=== PATIENT | male | born 1960 | race Caucasian/White ===

== ENCOUNTER 2019-12-06 07:39 | Emergency (ER) | payer BC, OTHER ==
[2019-12-06] MEDS ORDERED: Ketorolac 60 MG/2 ML SDV IM ONE (08:01)
[2019-12-06] MEDS ORDERED: Cyclobenzaprine 10 MG Tab PO ONE (08:01)
--- NOTE | 2019-12-06 08:04 | EDM.PDOC ---
ED HPI GENERAL MEDICAL PROBLEM - General Chief Complaint: Back Pain or Injury Stated Complaint: INJURED BACK Time Seen by Provider: 12/06/19 07:58 Source of Information: Reports: Patient, RN Notes Reviewed History Limitations: Reports: No Limitations - History of Present Illness INITIAL COMMENTS - FREE TEXT/NARRATIVE: 59-year-old gentleman presents emergency department a complaint of low back pain , he was at work walking up the plow he states he did not lift he just bent over and then when he stood up heard a pop all of a sudden severe back pain predominantly right in the middle of his back no loss of bowel or bladder no numbness and tingling in the feet he has not taken anything for the pain Lower Back Pain Score (Numeric/FACES): 9 - Related Data Allergies Allergy/AdvReac Type Severity Reaction Status Date / Time No Known Allergies Allergy Verified 12/06/19 07:50 Home Meds: Home Meds Cyclobenzaprine [Flexeril] 10 mg PO TID PRN #15 tab 12/06/19 [Rx] Past Medical History HEENT History: Reports: Impaired Vision, Other (See Below) Other HEENT History: tinnitiis Respiratory History: Reports: Pneumonia, Recurrent Other Gastrointestinal History: fistulectomy Musculoskeletal History: Reports: Arthritis, Osteoarthritis Psychiatric History: Reports: Anxiety - Infectious Disease History Infectious Disease History: Reports: Chicken Pox, Shingles Social & Family History - Family History Family Medical History: Noncontributory - Tobacco Use Smoking Status *Q: Current Every Day Smoker Years of Tobacco use: 40 Packs/Tins Daily: 0.5 - Caffeine Use Caffeine Use: Reports: Coffee - Recreational Drug Use Recreational Drug Use: No ED ROS GENERAL - Review of Systems Review Of Systems: See Below Constitutional: Reports: No Symptoms Respiratory: Reports: No Symptoms Cardiovascular: Reports: No Symptoms GI/Abdominal: Reports: No Symptoms Musculoskeletal: Reports: Back Pain Neurological: Reports: No Symptoms ED EXAM,LOWER BACK PAIN/INJURY - Physical Exam Exam: See Below Exam Limited By: No Limitations General Appearance: Alert, Mild Distress Respiratory/Chest: No Respiratory Distress Back Exam: Normal Inspection, Decreased Range of Motion, Muscle Spasm, Paraspinal Tenderness. No: CVA Tenderness (R), CVA Tenderness (L), Vertebral Tenderness Neurological: No: Straight Leg Raise (L), Straight Leg Raise (R) Course - Vital Signs Last Recorded V/S: Last Vital Signs Temp 97.1 F 12/06/19 07:53 Pulse 89 12/06/19 08:58 Resp 16 12/06/19 08:58 BP 108/50 L 12/06/19 08:58 Pulse Ox 99 12/06/19 08:58 - Orders/Labs/Meds Meds: Medications Discontinued Medications Generic Name Dose Route Start Last Admin Trade Name Isi PRN Reason Stop Dose Admin Cyclobenzaprine HCl 10 mg 12/06/19 08:01 12/06/19 08:08 Flexeril PO 12/06/19 08:02 10 mg ONETIME ONE Administration Ketorolac Tromethamine 60 mg 12/06/19 08:01 12/06/19 08:07 Toradol IM 12/06/19 08:02 60 mg ONETIME ONE Administration Departure - Departure Time of Disposition: 10:00 Disposition: Home, Self-Care 01 Condition: Fair Clinical Impression: Low back pain Qualifiers: Chronicity: acute Back pain laterality: bilateral Sciatica presence: without sciatica Qualified Code(s): M54.5 - Low back pain - Discharge Information Instructions: Back Exercises, Back Injury Prevention, [id number], Muscle Strain, [id number] Referrals: PCP,None [Primary Care Provider] - Forms: ED Department Discharge, ED Return to Work/School Form Additional Instructions: Continue to use Tylenol or Motrin as needed for pain control, try the Flexeril for muscle relaxant please followup with your primary care provider in 3-5 days if not better, please call return to the emergency department with worsening of symptoms., Sepsis Event Note - Evaluation Sepsis Screening Result: No Definite Risk - Focused Exam Vital Signs: Vital Signs Temp Pulse Resp BP Pulse Ox 12/06/19 08:58 89 16 108/50 L 99 12/06/19 07:57 79 18 94/43 L 97 12/06/19 07:53 97.1 F 83 17 82/38 L 97 12/06/19 07:45 97.1 F 83 17 82/38 L 97 Date Exam was Performed: 12/06/19 Time Exam was Performed: 09:58 - Assessment/Plan Plan: Assessment Acuity = acute Site and laterality = low back pain Etiology = secondary to lifting injury Manifestations = none Location of injury = work Lab values = plain films do show a L2 compression fracture however undetermined age Plan He had good improvement combination Tylenol and Flexeril plan is discharged home with Flexeril 10 mg p.o. 3 times daily PRN total #15 this to be faxed to [facility] pharmacy have him follow-up with his primary care in 2 to 3 days if not better This note was dictated using [employer] voice recognition software please call with any questions on syntax or grammar.
[2019-12-06 08:59] VITALS: BP 108/50; PULSE 89
--- NOTE | 2019-12-06 09:32 | CR ---
Lumbar Spine 2 or 3V CLINICAL HISTORY: Back pain FINDINGS: There is a mild to moderate wedge compression deformity of L2. Chronology of this is uncertain acute fracture is not excluded. The there is moderate degenerative disc changes at L5-S1. There is a grade 1 retrolisthesis of L5 on S1 due to facet osteoarthropathy IMPRESSION: Mild/moderate wedge compression deformity of L2 may be acute or subacute Grade 1 L5 retrolisthesis due to osteoarthropathy in the facets Degenerative disc change L5-S1
== END 2019-12-06 10:11 | disposition home or self-care (01) ==
LOC: JP.ED 07:39
DX: M54.5 Low back pain (principal); F17.210 Nicotine dependence, cigarettes, uncomplicated; X50.1XXA Overexertion from prolonged static or awkward postures, initial encounter; Y93.89 Activity, other specified; Y92.89 Other specified places as the place of occurrence of the external cause; Y99.0 Civilian activity done for income or pay
CPT/HCPCS: 72100; 96372; 99283; A9270; J1885

== ENCOUNTER 2023-08-25 06:24 | Day surgery (SDC) | payer BC ==
[2023-08-25] MEDS ORDERED: Sodium Chloride 0.9% 1,000 ML IV SCH (06:30)
[2023-08-25] MEDS ORDERED: Lidocaine 1% 50 ML MDV ONE (07:07)
[2023-08-25] MEDS ORDERED: Midazolam 1 MG/ML 2 ML SDV ONE (07:08)
[2023-08-25] MEDS ORDERED: fentaNYL 50 MCG/ML SDV ONE (07:08)
[2023-08-25] MEDS ORDERED: Propofol 200 MG/20 ML SDV ONE (07:08)
[2023-08-25] MEDS: Bupivacaine 0.5%/EPINEPHrine 1:200,000 50 ML MDV ONE ×2 (07:46→08:26)
[2023-08-25] MEDS ORDERED: ceFAZolin 1 GM Vial ONE (07:59)
[2023-08-25] MEDS ORDERED: Scopalamine 1mg/3day Transdermal Patch TOP ONE (09:51)
[2023-08-25] MEDS ORDERED: Ondansetron 4 MG/2 ML SDV IVPUSH ONE (10:53)
[2023-08-25 11:31] VITALS: BP 113/61; PULSE 68
== END 2023-08-25 12:24 | disposition home or self-care (01) ==
LOC: JP.SDS 06:24
PROVIDERS: ATTEND Surgery
DX: D04.4 Carcinoma in situ of skin of scalp and neck (principal); F17.210 Nicotine dependence, cigarettes, uncomplicated
CPT/HCPCS: 88305; A9270-GY; J0690; J2001; J2250; J2405; J2704; J3010; J3490; J7030